=== PATIENT | male | born 1985 | race Caucasian/White ===

== ENCOUNTER 2020-01-01 11:03 | Emergency (ER) | payer BC, SELFPAY ==
[2020-01-01 11:20] VITALS: BP 129/88; PULSE 104; RESP 20; TEMP 36.7; O2SAT 97
--- NOTE | 2020-01-01 11:40 | ED.URI ---
HPI - URI/Sore Throat General Chief Complaint: Upper Respiratory Infection Stated Complaint: Cough sore throat fever Time Seen by Provider: 01/01/20 11:40 Source: patient and family History of Present Illness HPI Narrative: Patient presents with cough sore throat and fever for the past 3 days. Patient states he called the [email or web address] hotline and was advised that he has not high risk for the co-vid 19 virus. Patient states he was instructed to come to [facility] for strep and influenza testing. Patient reports no shortness of breath no chest pain. Patient states he is a normally healthy individual. Patient reports normal appetite normal intake but has had generalized body aches cough sore throat and fever. Patient denies any international travel and denies any known exposure to the Covid 19 by virus MD elicited complaint: cough, sore throat and nasal congestion Related Data Home Medications Medication Instructions Recorded Confirmed hydrocodone-acetaminophen 1 tablet PO Q8H PRN 01/01/20 01/01/20 Allergies Allergy/AdvReac Type Severity Reaction Status Date / Time No Known Allergies Allergy Verified 01/01/20 11:33 Review of Systems Review of Systems: Narrative: CONSTITUTIONAL: Denies chills, or sweats. Reports fever and generalized body aches EYES: Denies visual changes, redness, or discharge. ENT: Denies otalgia. Reports nasal congestion runny nose and sore throat CARDIOVASCULAR: Denies chest pain, palpitations, or edema. RESPIRATORY: Denies dyspnea. Reports occasional cough GASTROINTESTINAL: Denies abdominal pain, nausea, vomiting, or diarrhea. GENITOURINARY: Denies dysuria or hematuria. SKIN: Denies rash or itching. MUSCULOSKELETAL: Denies back pain, joint pain, or myalgia. Reports generalized body aches NEUROLOGIC: Denies headache, numbness, or weakness. PSYCHIATRIC: Denies anxiety or depression. PMFSH Comments At time of signature, agree with nursing past medical, surgical, social and family history. There is no relevant family history pertinent to the presenting complaint Exam Narrative: Exam Narrative: The patient is a well-developed, well-nourished in no acute distress. SKIN: Skin is warm and dry without erythema, swelling or exudate. There is good turgor. No tenting. HEAD: Atraumatic. Normocephalic. No temporal or scalp tenderness. EYES: Moist and bright. Sclera and conjunctivae normal. No discharge. PERRLA. Extraocular motions intact. Gross visual acuity intact. EARS: Pinna is normal shape and contour. Clear external auditory canals. TM pearly ambriz with good cone of light, no erythema or suppuration. Bilateral cerumen noted no gross hearing deficit. NOSE: pink, moist mucosa with good air movement. Clear rhinorrhea without nasal flaring. Septum midline. Mouth: moist mucous membranes. THROAT; mild erythema noted to posterior oropharynx with moderate postnasal drainage. Without exudate or ulceration.. Uvula midline. Normal movement of soft palate. NECK: Supple and nontender with full range of motion without discomfort. No meningeal signs. LUNGS: Equal and bilateral breath sounds without wheezes, rales or rhonchi. CHEST: The chest wall is without retractions or use of accessory muscles. HEART: Has a regular rate and rhythm without murmur, gallops, click or rub. ABDOMEN: Soft, nontender with positive active bowel sounds. No rebound tenderness. EXTREMITIES: Without cyanosis, clubbing or edema. Equal 2+ distal pulses and 2 second capillary refill noted. NEUROLOGIC: alert, active, . The patient moves all extremities with normal muscle strength. Normal muscle tone is noted. Normal coordination is noted. NO focal neurological findings noted. Course Vital Signs Vital signs: Vital Signs Temperature 36.7 C 01/01/20 11:20 Pulse Rate 104 H 01/01/20 11:20 Respiratory Rate 20 01/01/20 11:20 Blood Pressure 129/88 01/01/20 11:20 Pulse Oximetry 97 01/01/20 11:20 Temperature 36.7 C 01/01/20 11:20
== END 2020-01-01 12:20 | disposition home or self-care (01) ==
PROVIDERS: Emergency Provider Nurse Practitioner Family
DX: J06.9 Acute upper respiratory infection, unspecified (principal); J40 Bronchitis, not specified as acute or chronic; B34.9 Viral infection, unspecified
CPT/HCPCS: 87081; 87804; 87880; 99213; G0463